=== PATIENT | female | born 1970 | race Caucasian/White ===

== ENCOUNTER 2020-01-08 13:00 | Observation (INO) ==
[2020-01-08 14:10] LABS: Basophils # (auto) 0.06 K/uL (0-0.2); Basophils % (auto) 0.8 %; Eosinophils # (auto) 0.19 K/uL (0-0.5); Eosinophils % (auto) 2.5 %; Hematocrit (blood only) 42.3 % (37-47); Hemoglobin 13.2 g/dL (12.0-16.0); Immature Granulocytes # (auto) 0.01 K/uL (0.00-0.02); Immature Granulocytes % (auto) 0.1 %; Lymphocytes # (auto) 2.53 K/uL (1.2-3.4); Lymphocytes % (auto) 33.4 %; Mean Corpuscular Hemoglobin 27.2 pg (25-34); Mean Corpuscular Hgb Conc 31.2 g/dL (32-36); Mean Platelet Volume 10.5 fL (7.4-10.4); Monocytes # (auto) 0.81 K/uL (0.11-0.59); Monocytes % (auto) 10.7 %; Neutrophils # (auto) 3.97 K/uL (1.4-6.5); Neutrophils % (auto) 52.5 %; Platelet Count 356 K/uL (130-400); RDW Coefficient of Variation 15.1 % (11.5-14.5); RDW Standard Deviation 48.1 fL (36.4-46.3); Red Blood Count 4.86 M/uL (4.2-5.4); White Blood Count 7.57 K/uL (4.8-10.8)
--- NOTE | 2020-01-08 14:19 | Emergency Department Note ---
Impression & Plan AMS (altered mental status) ED Provider Note INFORMANT: Patient ED PROVIDER(S): Heriberto Jimenez MD CHIEF COMPLAINT: Altered mental status PLAN: Disposition: Admitted Condition: Good MEDICAL DECISION MAKING: Patient was brought him in department due to a change in mental status. 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 The patient thought this might be related to a change in her medications. She is on multiple different medications that could affect her however most of these have been chronic. A work-up was performed. The patient had an abnormal ECG but was not having any chest pain. The patient underwent CT imaging of her head. This was negative for acute process. Her CBC was unremarkable. No leukocytosis. The patient had significant hypokalemia noted on her chemistry panel. This was repleted. The patient was hydrated. Remainder of her chemistries were unremarkable. Troponin negative. Tylenol, salicylate, and ethanol levels negative. Urinalysis pending. Given the reports of the family about the abrupt change the patient needs further evaluation and management in the hospital. [facility]. The patient was evaluated in the ER and admitted for further management. Triage Nursing notes reviewed and agree them. Additional history obtained from patient's Vital Signs: reviewed and remarkable for no significant abnormalities Differential diagnosis: Infection, hypoglycemia, electrolyte abnormalities, overdose, toxicologic, cardiac sources, intracerebral event, neurologic, trauma, as well as other pathologies. Diagnostics interpreted by me: ECG: Twelve-lead ECG reveals a sinus rhythm with a short MD at 79 bpm. There is a prolonged QT present. RSR prime pattern present. Anterior T wave inversions are present. No ST elevation. No PVCs. Cardiac Monitoring: Cardiac monitoring ordered by me: The patient was placed on continuous cardiac monitoring and observed. It revealed a sinus rhythm at 77 beats per minute without ectopy or evidence of dysrhythmia. Imaging studies: Head CT: A noncontrast CT scan of the head was performed and was negative for tumor, fracture, intracranial hemorrhage, or other acute pathology. [facility] HPI: The patient is a 49 year old female who presents to the Emergency Room with complaints of AMS. This started 3 days ago and is confirmed by her mother. Mother also notes she was dropping things over the last few weeks. She also has had tremors. The patient also notes the following associated symptoms, insomnia, LOC, headache. The patient has found relieving factors. Current pain is rated as 7/10. Pt denies fevers, chills, diaphoresis, visual changes, neck pain, chest pain, breathing difficulties, nausea, vomiting, abdominal pain, back pain, melena, hematochezia, urinary symptoms, numbness, lymphadenopathy, r vonda, or other complaints. ROS: See above HPI for pertinent positives & negatives. A total of 10 systems reviewed and were otherwise negative. PAST MEDICAL HISTORY:See Below, chronic back pain PAST SURGICAL HISTORY:See Below, FAMILY HISTORY:See Below SOCIAL HISTORY:See Below, Lives with family HOME MEDICATIONS:See Below ALLERGIES:See Below VITALS:See Below PHYSICAL EXAMINATION: GENERAL: Awake, alert, anxious-appearing, in no distress HENT: Normocephalic, atraumatic. Oropharynx unremarkable. EYES: Normal conjunctiva. Sclera non-icteric. NECK: Inspection normal. Non-tender. Supple. No nuchal rigidity. FROM. No masses. RESPIRATORY: Clear to auscultation. No wheezes. No rales. Normal respiratory effort. CARDIAC: Normal rate. Normal rhythm. No murmurs. No rubs. Extremities warm and well perfused. Pulses equal. No JVD. GI: Soft, non-distended. No tenderness to palpation. No rebound or guarding. No masses. RECTAL: Deferred. MUSCULOSKELETAL: Atraumatic. Chest examination reveals no tenderness. The back is symmetrical on inspection without obvious abnormality. There is no CVA tenderness to palpation. No joint edema. LOWER EXTREMITIES: Calves are equal size bilaterally and non-tender. No edema. No discoloration. NEURO: Normal sensorium. No sensory or motor deficits noted. SKIN: No rash or jaundice noted. Heriberto Jimenez MD Past Med/Surg History Social History Smoking Status: Former smoker Tobacco Type: E-cigarettes / Vaping Second Hand Exposure: No; Do You Dip or Chew Tobacco: No; Tobacco Cessation Education Requested by Patient: No Hx Alcohol Use: No Hx Substance Use: No Preferred Language: Yoruba Communication Ability: Effective Tire Technician Required: No Beliefs That Will Affect Care: None Current Living Situation: Family Other Information That Helps Us Care for You: No Feels Safe at Home: Yes Safety Concerns: Feels Safe At This Time Assistive Devices: Cane and Glasses Allergies Allergies Allergy/AdvReac Type Severity Reaction Status Date / Time dexamethasone Allergy Severe HIVES Unverified 01/08/20 14:39 dicyclomine Allergy Severe HIVES Unverified 01/08/20 14:39 Penicillins Allergy Severe HIVES Unverified 01/08/20 14:39 Sulfa (Sulfonamide Allergy Severe HIVES Unverified 01/08/20 14:39 Antibiotics) Latex2 -Systemic Allergic Allergy Severe ANAPHYLAXIS Uncoded 01/08/20 14:39 Response Home Meds Home Medications Medication Instructions Recorded Confirmed hydrocodone-acetaminophen 1 tab PO Q6H PRN #0 tab 09/27/13 01/08/20 baclofen 20 mg PO Q6H 01/08/20 01/08/20 buspirone 5 mg PO TID 01/08/20 01/08/20 duloxetine 120 mg PO QAM 01/08/20 01/08/20 furosemide 20 mg PO BID 01/08/20 01/08/20 levothyroxine 112 mcg PO QAM 01/08/20 01/08/20 linaclotide [Linzess] 290 mcg PO QAM PRN 01/08/20 01/08/20 morphine 50 mg PO BID 01/08/20 01/08/20 pregabalin 100 mg PO BID 01/08/20 01/08/20 Results & Data (ED) Vital Signs Vital Signs - 24 hr 01/08/20 13:14 01/08/20 14:01 01/08/20 14:16 Temperature 36.9 C Temperature Source Oral Pulse Rate 88 79 82 Pulse Rate from SpO2 Sensor Respiratory Rate 18 20 30 H Respiratory Effort / Characteristics Non-Labored Spontaneous Respiratory Depth Normal Respiratory Pattern Regular Blood Pressure 120/76 103/90 Blood Pressure Mean 90 95 Blood Pressure Position Sitting Pulse Oximetry 94 Oxygen Delivery Method Room Air Sepsis Recent Fever Within 48 Hours No Sepsis New/Unexplained Change in Mental Status N/A Sepsis Action Taken by Nursing No Action Required 01/08/20 14:30 01/08/20 14:31 01/08/20 14:56 Temperature Temperature Source Pulse Rate 82 77 81 Pulse Rate from SpO2 Sensor 81 77 80 Respiratory Rate 23 25 H 16 Respiratory Effort / Characteristics Respiratory Depth Respiratory Pattern Blood Pressure 134/92 124/81 Blood Pressure Mean 104 89 Blood Pressure Position Pulse Oximetry 94 96 95 Oxygen Delivery Method Sepsis Recent Fever Within 48 Hours Sepsis New/Unexplained Change in Mental Status Sepsis Action Taken by Nursing 01/08/20 15:00 01/08/20 15:30 01/08/20 16:00 Temperature Temperature Source Pulse Rate 76 76 84 Pulse Rate from SpO2 Sensor 76 75 82 Respiratory Rate 14 17 22 Respiratory Effort / Characteristics Respiratory Depth Respiratory Pattern Blood Pressure 124/77 127/72 129/92 Blood Pressure Mean 89 82 115 Blood Pressure Position Pulse Oximetry 90 92 98 Oxygen Delivery Method Sepsis Recent Fever Within 48 Hours Sepsis New/Unexplained Change in Mental Status Sepsis Action Taken by Nursing Laboratory Data Result diagrams: 01/08/20 13:55 01/08/20 13:55 Lab Results 01/08/20 01/08/20 01/08/20 Range/Units 13:55 13:55 13:55 WBC 7.57 (4.8-10.8) K/uL RBC 4.86 (4.2-5.4) M/uL Hgb 13.2 (12.0-16.0) g/dL Hct 42.3 (37-47) % MCV 87.0 (80-100) fL MCH 27.2 (25-34) pg MCHC 31.2 L (32-36) g/dL RDW Std Deviation 48.1 H (36.4-46.3) fL RDW Coeff of Marlee 15.1 H (11.5-14.5) % Plt Count 356 (130-400) K/uL MPV 10.5 H (7.4-10.4) fL Immature Gran % (Auto) 0.1 % Neut % (Auto) 52.5 % Lymph % (Auto) 33.4 % [place] % (Auto) 10.7 % Eos % (Auto) 2.5 % Baso % (Auto) 0.8 % Neut # (Auto) 3.97 (1.4-6.5) K/uL Lymph # (Auto) 2.53 (1.2-3.4) K/uL [place] # (Auto) 0.81 H (0.11-0.59) K/uL Eos # (Auto) 0.19 (0-0.5) K/uL Baso # (Auto) 0.06 (0-0.2) K/uL Immature Gran # (Auto) 0.01 (0.00-0.02) K/uL Sodium 140 (136-145) mmol/L Potassium 2.4 L* (3.5-5.1) mmol/L Chloride 99 (98-107) mmol/L Carbon Dioxide 33 H (21-32) mmol/L Anion Gap 8.0 (3-11) BUN 9 (7-18) mg/dl Creatinine 1.30 H (0.6-1.2) mg/dl Est Cr Clr Drug Dosing 57.8 ml/min Est GFR ( Amer) 55.4 Est GFR (Non-Af Amer) 47.8 BUN/Creatinine Ratio 7.1 L (10-20) Glucose 98 (70-99) mg/dl Calcium 9.9 (8.5-10.1) mg/dl Total Bilirubin 0.7 (0.2-1) mg/dl AST 44 H (15-37) U/L ALT 28 (12-78) U/L Alkaline Phosphatase 112 (45-117) U/L Troponin I (0-0.045) ng/ml Total Protein 7.9 (6.4-8.2) gm/dl Albumin 3.8 (3.4-5.0) gm/dl Globulin 4.1 H (2.5-4.0) gm/dl Albumin/Globulin Ratio 0.9 (0.9-2) TSH 12.300 H (0.300-4.500) uIu/ml Free T4 0.83 (0.8-1.6) ng/dl Salicylates < 1.7 L (2.8-20) mg/dl Acetaminophen < 2 L (10-30) ug/ml Ethyl Alcohol mg/dL (0-3) mg/dl 01/08/20 01/08/20 Range/Units 13:55 16:05 WBC (4.8-10.8) K/uL RBC (4.2-5.4) M/uL Hgb (12.0-16.0) g/dL Hct (37-47) % MCV (80-100) fL MCH (25-34) pg MCHC (32-36) g/dL RDW Std Deviation (36.4-46.3) fL RDW Coeff of Marlee (11.5-14.5) % Plt Count (130-400) K/uL MPV (7.4-10.4) fL Immature Gran % (Auto) % Neut % (Auto) % Lymph % (Auto) % [place] % (Auto) % Eos % (Auto) % Baso % (Auto) % Neut # (Auto) (1.4-6.5) K/uL Lymph # (Auto) (1.2-3.4) K/uL [place] # (Auto) (0.11-0.59) K/uL Eos # (Auto) (0-0.5) K/uL Baso # (Auto) (0-0.2) K/uL Immature Gran # (Auto) (0.00-0.02) K/uL Sodium (136-145) mmol/L Potassium (3.5-5.1) mmol/L Chloride (98-107) mmol/L Carbon Dioxide (21-32) mmol/L Anion Gap (3-11) BUN (7-18) mg/dl Creatinine (0.6-1.2) mg/dl Est Cr Clr Drug Dosing ml/min Est GFR ( Amer) Est GFR (Non-Af Amer) BUN/Creatinine Ratio (10-20) Glucose (70-99) mg/dl Calcium (8.5-10.1) mg/dl Total Bilirubin (0.2-1) mg/dl AST (15-37) U/L ALT (12-78) U/L Alkaline Phosphatase (45-117) U/L Troponin I < 0.015 (0-0.045) ng/ml Total Protein (6.4-8.2) gm/dl Albumin (3.4-5.0) gm/dl Globulin (2.5-4.0) gm/dl Albumin/Globulin Ratio (0.9-2) TSH (0.300-4.500) uIu/ml Free T4 (0.8-1.6) ng/dl Salicylates (2.8-20) mg/dl Acetaminophen (10-30) ug/ml Ethyl Alcohol mg/dL < 3.0 (0-3) mg/dl Administered Medications Potassium Chloride/Sodium Chloride (Normal Saline W/20 Meq Kcl) 20 meq in 1,000 mls @ 100 mls/hr IV .Q10H JAZMÍN Stop: 01/09/20 12:16 Last Admin: 01/08/20 16:28 Dose: 100 mls/hr Documented by: [id number] Discontinued Medications Potassium Chloride (K Bob / Wtr) 10 meq in 100 mls @ 100 mls/hr IV Q1H JAZMÍN Stop: 01/08/20 16:59 Last Infusion: 01/08/20 19:50 Dose: 0 mls/hr Documented by: [id number] Admin: 01/08/20 16:28 Dose: 100 mls/hr Documented by: [id number] Infusion: 01/08/20 16:18 Dose: 100 mls/hr Documented by: [id number] Admin: 01/08/20 15:18 Dose: 100 mls/hr Documented by: [id number] Potassium Chloride (K Bob / Wtr) 10 meq in 100 mls @ 100 mls/hr IV Q1H STA Stop: 01/08/20 17:16 Last Infusion: 01/08/20 19:50 Dose: 0 mls/hr Documented by: [id number] Admin: 01/08/20 18:43 Dose: 100 mls/hr Documented by: [id number] Discharge Plan Visit Data Chief Complaint: Illness Stated Complaint: HALLUCINATING, NOT FEELING WELL ED Provider: Heriberto Jimenez Discharge Problem: AMS (altered mental status) Patient Disposition: Admitted As Inpatient Discharge Instructions Interventions: ED Discharge Assessment Last Done: 01/08/20 17:32
[2020-01-08 14:35] LABS: Albumin Level 3.8 gm/dl (3.4-5.0); BUN Creatinine Ratio 7.1 (10-20); Calcium 9.9 mg/dl (8.5-10.1); Creatinine Clr Calc Pharmacy 57.8 ml/min; Est GFR (African American) 55.4; Est GFR (Non-African American) 47.8; Potassium 2.4 mmol/L (3.5-5.1)
[2020-01-08 14:38] LABS: Albumin Globulin Ratio 0.9 (0.9-2); Bilirubin,Total 0.7 mg/dl (0.2-1); Globulin 4.1 gm/dl (2.5-4.0); Thyroid Stimulating Hormone 12.3 uIu/ml (0.300-4.500); Total Protein 7.9 gm/dl (6.4-8.2)
[2020-01-08 14:51] LABS: Acetaminophen < 2 ug/ml (10-30); Salicylate < 1.7 mg/dl (2.8-20); T4 Free Thyroxine 0.83 ng/dl (0.8-1.6)
--- NOTE | 2020-01-08 15:00 | CT Scan Report ---
CT OF THE HEAD WITHOUT CONTRAST CLINICAL HISTORY: Altered mental status. COMPARISON STUDY: No previous studies for comparison. CT DOSE: 1074.96 mGy.cm TECHNIQUE: Helical axial images of the head were obtained without IV contrast. Automated exposure con trol was utilized for the study. A dose lowering technique was utilized adhering to the principles o f ALARA. FINDINGS: No acute intracranial hemorrhage, midline shift or mass effect is present. The ventricular system is unremarkable. The basilar cisterns are patent. No extra-axial collections are present. Ther e are no findings to suggest acute dural sinus thrombosis or acute territorial infarct. No significan t calvarial abnormalities are present. Visualized portions of the sinuses and mastoid air cells are c lear. IMPRESSION: No acute intracranial findings. ACT 112: Negative or not required by law. Electronically signed by: Lyndon Zambrano M.D. 01/08/2020 2:58 PM
[2020-01-08] MEDS: POTASSIUM CHLORIDE / WTR 10 MEQ/100 ML PLCT IV SCH ×5 (15:18→23:31)
[2020-01-08] MEDS ORDERED: POTASSIUM CHLORIDE / WTR 10 MEQ/100 ML PLCT IV STA (16:17)
--- NOTE | 2020-01-08 16:19 | History & Physical Report ---
Date of Service January 08, 2020 Assessment & Plan (1) Acute encephalopathy: Suspect secondary to baclofen withdrawal, but differential includes illicit drug use (which she denies, UDS pending), drug toxicity from Flexeril or Rozerem (although seems less likely given only had 2 doses of each, 2-3 weeks ago). Baclofen withdrawal can cause AMS, exaggerated rebound spasticity, hallucinations, high fever, muscle rigidity, seizures, rhabdomyolysis, multi- organ system failure, and as per UpToDate. Fortunately, while she is exhibiting tremors and fasciculations, hallucinations, delirium, she has not developed seizures or multi-system organ failure. CPK not checked on admission. COuld be Lyme disease I suppose vs other generally more insidious causes such as Vitamin B1 or B12 deficiency, hypothyroidism, neurosyphilis. It seems most likely baclofen withdrawal is the culprit, especially as mother reports some improvement since restarting po baclofen [address] head negative, no signs of infection such as leukocytosis, fever or symptoms of infection. No signs or symptoms of meningitis or encephalitis. Her mentation is actually pretty good for me on admission which apparently is an improvement from previous -Admit to PCU for cardiac monitoring given prolonged QT -continue usual home baclofen dose at 20mg po qid -IV ativan prn agitation or anxiety -replace lytes as below -check CK, Lyme titer, RPR, B1, and B12 levels with next lab draw -hydrate with IVFs -watch for fevers or seizures -consult Neuro for further opinion on if needs further imaging or studies -f/u on urine tox screen and UA when available -continue other usual home meds to avoid overlapping opioid withdrawal (2) Hypokalemia: K+ severely low at 2.4 on admission COuld be from lasix use at home and tremors,fasciculations, muscle rigidity -replace with total of KCL 60meq IV over the next 6 hours -start NS + KCl 20meq at 100 mL/hr -follow repeat BMP and Magnesium this evening once riders are completed -HOLD lasix (3) Abnormal ECG: TWIs and prolonged QT could be from hypokalemia replace lytes and repeat ECG in AM monitor on tele for arrhythmias troponin negative, no chest pain (4) Chronic lumbar radiculopathy: failed back syndrome, s/p lumbar fusion sees Pain Man for injections PCP manages medications -continue home Morphine ER 50mg po bid, hydrocodone 7.5/300mg 1 tab po q6h prn, Lyrica 100mg bid, CYmbalta 120mg daily, and baclofen 20 mg po qid as above (5) Neuropathy: stable continue home meds (6) Chronic lower back pain: as above, continue home meds (7) Opioid dependence: continue home Morphine, hydrocodone (8) Current smoker: encouraged smoking/vaping cessation she is adamant about getting nicotine replacement patch while here (9) Hypothyroidism: TSH elevated at 12 but FT4 normal She can't remember if she has been taking her levothyroxine or not at home. Interestingly, her mom brought in all of her bottles of meds from home and levothyroxine was not one of the bottles. Perhaps she has forgotten to take it lately in her delirium -continue usual home dose of 112 mcg repeat TFTs in 4 weeks COuld also be contributing to her delirium (10) Obesity: BMI 32, needs weight loss (11) Constipation due to opioid therapy: reports she only moves bowels once per week and takes an OTC laxative -add on daily Miralax and senna/docusate 1 tab po bid She reports Linzess only gives her gas but doesn't help so doesn't take it -consider Movantik as outpt, can use Relistor here if really needed (12) Symptomatic postsurgical menopause: continue low dose clonidine 0.05mg po tid for vasomotor symptoms (13) Peripheral edema: no edema today holding lasix for hypokalemia (14) Depression with anxiety: stable except anxiety worse lately with symptoms as above -continue home Cymbalta 120mg daily, Buspar Ativan ordered prn (15) DVT prophylaxis: Lovenox SQ SCDs Dispo-admit to PCU, expect at least 2 midnight stay History of Present Illness Chief Complaint: Altered mental status,multiple falls Primary Care Provider: Jonathan Graham This pt is a 49 yo female with a h/o failed back syndrome and lumbar radiculopathy on chronic opioids, depression/anxiety, hypothyroidism, symptomatic menopause on clonidine, endometriosis now s/p FREDO-BSO, opioid- induced constipation, peripheral edema, and current smoker who p/w altered mental status as per her mother. The pt is actually able to provide most of the history with great detail, supplemented at times by her mother. Pt reports she saw her PCP on 12/14 and had c/o insomnia and also wanted to come off of baclofen. Her PCP put her on a 5 day taper off of Baclofen and started her on Rozerem for sleep. After 2 days of taking Rozerem, she said she started feeling "weird" and stopped taking the Rozerem. After the 5 day taper of Baclofen, she started on Flexeril 10mg po tid x 2 days for muscle spasm. She reports this also made her feel "weird" so she stopped it. Since that time, her mother reports she has been very lethargic, sleeping all day long and then waking up at midnight and watching TV. Then, for the last 5 days or so, started having visual and auditory contreras ucinations, getting paranoid, and was forgetting to do simple tasks. Mother reports the pt had tremors and could not hold even a cup in her hand or feed herself. Mother also reports pt having frequent twitching of her body but was awake/conscious. She will get up to walk across the room and then seems to forget how to walk or stand up straight. She has had 6 falls in the last 3 days, but fortunately has not sustained any injuries. Pt denies any pain over her usual lower back and leg pain. SHe has a chronic sensory deficit in her RLE and chronic radicular pain in LLE along with neuropathic pain. Mom reports she c/o headaches for a few days but now those are resolved. Mom reports pt is "usually a [id number] person" and that all of these behaviors are very out of the ordinary. Mom called the PCP 2 days ago and asked if perhaps these symptoms were from Baclofen withdrawal and was advised to have her restart the baclofen at that time (she had been off of it since 12/19). Since restarting baclofen, mom has noticed some improvement but was still concerned and brought her to the ER. No fevers or cough, no diarrhea or abd pain, no urinary problems. Denies chest pain or SOB. Pt denies any illicit drug use. In the ER, she was found to have severely low potassium, abnormal ECG with sinus rhythm ,short NH, prolonged QT present, RSR prime pattern present, and anterior T wave inversions are present. She also had an elevated TSH at 12, with normal FT4 and was told by her PCP office that her thyroid function was normal on routine blood work done 2-3 weeks ago. CBC was fairly unremarkable, AST was minimally elevated, and construction foreman mildly elevated at 1.3. APAP, salicylate level, and EtOH levels all negative. Urine tox and UA had not yet been collected at time of admission. CT head was negative for acute disease. She will be admitted for acute encephalopathy, possibly related to baclofen withdrawal in setting of polypharmacy, as well as severe hypokalemia with resultant ECG changes. Allergies Allergy/AdvReac Type Severity Reaction Status Date / Time dexamethasone Allergy Severe HIVES Unverified 01/08/20 14:39 dicyclomine Allergy Severe HIVES Unverified 01/08/20 14:39 Penicillins Allergy Severe HIVES Unverified 01/08/20 14:39 Sulfa (Sulfonamide Allergy Severe HIVES Unverified 01/08/20 14:39 Antibiotics) Latex2 -Systemic Allergic Allergy Severe ANAPHYLAXIS Uncoded 01/08/20 14:39 Response Home Medications Home Medications Medication Instructions Recorded Confirmed Type hydrocodone-acetaminophen 1 tab PO Q6H PRN #0 tab 09/27/13 01/08/20 History baclofen 20 mg PO Q6H 01/08/20 01/08/20 History buspirone 5 mg PO TID 01/08/20 01/08/20 History clonidine HCl 0.05 mg PO TID 01/08/20 01/08/20 History duloxetine 120 mg PO QAM 01/08/20 01/08/20 History furosemide 20 mg PO BID 01/08/20 01/08/20 History levothyroxine 112 mcg PO QAM 01/08/20 01/08/20 History linaclotide [Linzess] 290 mcg PO QAM PRN 01/08/20 01/08/20 History morphine 50 mg PO BID 01/08/20 01/08/20 History pregabalin 100 mg PO BID 01/08/20 01/08/20 History Past Med/Surg History Medical History Chronic lower back pain Chronic lumbar radiculopathy Constipation due to opioid therapy Current smoker Depression with anxiety History of endometriosis Hypothyroidism Neuropathy Obesity Opioid dependence Peripheral edema Symptomatic postsurgical menopause Surgical History History of appendectomy History of section History of hysterectomy with bilateral oophorectomy History of laparoscopy History of lumbar fusion History of tonsillectomy and adenoidectomy Family History Mother Hyperlipidemia Father Myocardial infarction Hypertension Hypothyroidism Social History Smoking Status: Current every day smoker Tobacco Type: E-cigarettes / Vaping Second Hand Exposure: No; Do You Dip or Chew Tobacco: No; Tobacco Cessation Education Requested by Patient: No Hx Alcohol Use: No Hx Substance Use: No Preferred Language: Japanese Communication Ability: Effective Phlebotomy Instructor Required: No Beliefs That Will Affect Care: None Current Living Situation: Family current occupational status: disabled Other Information That Helps Us Care for You: No Feels Safe at Home: Yes Safety Concerns: Feels Safe At This Time Assistive Devices: Cane and Denture - Lower Review of Systems Review of Systems: All systems reviewed & are unremarkable except as noted in HPI & below Physical Exam Constitutional: WD/WN, vitals as above + obese and cooperative; no acute distress, not ill appearing and not lethargic restless Eyes: PERRL, conjunctivae normal, anicteric sclerae (pupils 3-4mm and reactive) no nystagmus ENMT: external ear and nose normal, oropharynx normal Ears: no hearing impairment Mouth: + dentition abnormality (edentulous) Neck: trachea midline, no thyromegaly neck nontender and no nuchal rigidity Respiratory: normal respiratory effort, lungs clear to auscultation Cardiovascular: RRR, no murmur, no edema Vessels: dorsalis pedis pulses present Chest (Breasts): Chest: normal inspection of chest Gastrointestinal (Abdomen): normal bowel sounds, soft, nontender, no hepatosplenomegaly Musculoskeletal: Extremities: extremities normal to inspection; no cyanosis and no clubbing Skin: no rashes, warm and dry + lesion (a few scabs on dorsal toes) Neurologic: PERRL, EOMI, accommodation nl, no face palsy, no dysarthria CN's II-XI intact bilaterally, moves all extremities, + focal motor deficit (4/5 weakness in LEs bilat, chronic), awake and + confused (occasionally forgetful b ut had recognition of this); + abnormal deep tendon reflexes (1+ throughout) Speech / Cognition: normal speech, no expressive aphasia, no receptive aphasia and normal cognition Motor/Sensory: + tremor, + abnormal movement (w/ constant restlessness of legs, arms, and occasional choreiform movements) and + sensory deficit (to lt touch in RLE,chronic) Psychiatric: A+Ox3, euthymic affect Lymphatic: no lymphedema Results & Data Results & Data ([facility]) Vital Signs (Past 12 Hours) Vital Signs Temp Pulse Resp BP Pulse Ox 01/08/20 15:30 76 17 127/72 92 01/08/20 15:00 76 14 124/77 90 01/08/20 14:56 81 16 124/81 95 01/08/20 14:31 77 25 H 134/92 96 01/08/20 14:30 82 23 94 01/08/20 14:16 82 30 H 01/08/20 14:01 79 20 103/90 01/08/20 13:14 36.9 C 88 18 120/76 94 Laboratory Results 01/08/20 01/08/20 01/08/20 Range/Units 16:05 13:55 13:55 WBC (4.8-10.8) K/uL RBC (4.2-5.4) M/uL Hgb (12.0-16.0) g/dL Hct (37-47) % MCV (80-100) fL MCH (25-34) pg MCHC (32-36) g/dL RDW Std Deviation (36.4-46.3) fL RDW Coeff of Marlee (11.5-14.5) % Plt Count (130-400) K/uL MPV (7.4-10.4) fL Immature Gran % (Auto) % Neut % (Auto) % Lymph % (Auto) % [place] % (Auto) % Eos % (Auto) % Baso % (Auto) % Neut # (Auto) (1.4-6.5) K/uL Lymph # (Auto) (1.2-3.4) K/uL Kingman # (Auto) (0.11-0.59) K/uL Eos # (Auto) (0-0.5) K/uL Baso # (Auto) (0-0.2) K/uL Immature Gran # (Auto) (0.00-0.02) K/uL Sodium (136-145) mmol/L Potassium (3.5-5.1) mmol/L Chloride (98-107) mmol/L Carbon Dioxide (21-32) mmol/L Anion Gap (3-11) BUN (7-18) mg/dl Creatinine (0.6-1.2) mg/dl Est Cr Clr Drug Dosing ml/min Est GFR ( Amer) Est GFR (Non-Af Amer) BUN/Creatinine Ratio (10-20) Glucose (70-99) mg/dl Calcium (8.5-10.1) mg/dl Total Bilirubin (0.2-1) mg/dl AST (15-37) U/L ALT (12-78) U/L Alkaline Phosphatase (45-117) U/L Troponin I < 0.015 (0-0.045) ng/ml Total Protein (6.4-8.2) gm/dl Albumin (3.4-5.0) gm/dl Globulin (2.5-4.0) gm/dl Albumin/Globulin Ratio (0.9-2) TSH (0.300-4.500) uIu/ml Free T4 (0.8-1.6) ng/dl Salicylates < 1.7 L (2.8-20) mg/dl Acetaminophen < 2 L (10-30) ug/ml Ethyl Alcohol mg/dL < 3.0 (0-3) mg/dl 01/08/20 01/08/20 Range/Units 13:55 13:55 WBC 7.57 (4.8-10.8) K/uL RBC 4.86 (4.2-5.4) M/uL Hgb 13.2 (12.0-16.0) g/dL Hct 42.3 (37-47) % MCV 87.0 (80-100) fL MCH 27.2 (25-34) pg MCHC 31.2 L (32-36) g/dL RDW Std Deviation 48.1 H (36.4-46.3) fL RDW Coeff of Marlee 15.1 H (11.5-14.5) % Plt Count 356 (130-400) K/uL MPV 10.5 H (7.4-10.4) fL Immature Gran % (Auto) 0.1 % Neut % (Auto) 52.5 % Lymph % (Auto) 33.4 % Kingman % (Auto) 10.7 % Eos % (Auto) 2.5 % Baso % (Auto) 0.8 % Neut # (Auto) 3.97 (1.4-6.5) K/uL Lymph # (Auto) 2.53 (1.2-3.4) K/uL Kingman # (Auto) 0.81 H (0.11-0.59) K/uL Eos # (Auto) 0.19 (0-0.5) K/uL Baso # (Auto) 0.06 (0-0.2) K/uL Immature Gran # (Auto) 0.01 (0.00-0.02) K/uL Sodium 140 (136-145) mmol/L Potassium 2.4 L* (3.5-5.1) mmol/L Chloride 99 (98-107) mmol/L Carbon Dioxide 33 H (21-32) mmol/L Anion Gap 8.0 (3-11) BUN 9 (7-18) mg/dl Creatinine 1.30 H (0.6-1.2) mg/dl Est Cr Clr Drug Dosing 57.8 ml/min Est GFR ( Amer) 55.4 Est GFR (Non-Af Amer) 47.8 BUN/Creatinine Ratio 7.1 L (10-20) Glucose 98 (70-99) mg/dl Calcium 9.9 (8.5-10.1) mg/dl Total Bilirubin 0.7 (0.2-1) mg/dl AST 44 H (15-37) U/L ALT 28 (12-78) U/L Alkaline Phosphatase 112 (45-117) U/L Troponin I (0-0.045) ng/ml Total Protein 7.9 (6.4-8.2) gm/dl Albumin 3.8 (3.4-5.0) gm/dl Globulin 4.1 H (2.5-4.0) gm/dl Albumin/Globulin Ratio 0.9 (0.9-2) TSH 12.300 H (0.300-4.500) uIu/ml Free T4 0.83 (0.8-1.6) ng/dl Salicylates (2.8-20) mg/dl Acetaminophen (10-30) ug/ml Ethyl Alcohol mg/dL (0-3) mg/dl Diagnostic Findings CT head-negative ECG Additional Comments: as per HPI Code Status & VTE Plan VTE Prophylaxis Plan VTE Prophylaxis will be ordered: Yes PG Care Time/CCT Total # of Minutes Spent Total Time Spent with Patient: Total time spent is greater than 50% in coordination of care (as documented) at patient's floor/unit and/or counseling patient: Coding Level of Care Code 30638 Initial Inpt Care Lvl 3 Diagnoses Acute encephalopathy G93.40 Hypokalemia E87.6 Abnormal ECG R94.31 Chronic lumbar radiculopathy M54.16 Neuropathy G62.9 Chronic lower back pain M54.5; G89.29 Opioid dependence F11.20 Current smoker F17.200 Hypothyroidism E03.9 Obesity E66.9 Constipation due to opioid therapy K59.03; T40.2X5A Symptomatic postsurgical menopause E89.41 Peripheral edema R60.9 Depression with anxiety F41.8 DVT prophylaxis Z29.9
[2020-01-08] MEDS: NSS + 20MEQ KCL 20 MEQ/1,000 ML BAG IV SCH (16:28)
[2020-01-08] MEDS ORDERED: LORazepam 0.5 MG/1 ML VIAL IV PRN (18:07)
[2020-01-08] MEDS ORDERED: ENOXAPARIN INJ 40 MG/0.4 ML SYR SQ SCH (19:00)
[2020-01-08] MEDS ORDERED: NICOTINE 21 MG/24 HR TDSY TD SCH (19:00)
[2020-01-08] MEDS: BACLOFEN 20 MG TAB PO SCH (20:34)
[2020-01-08] MEDS: PREGABALIN 100 MG CAP PO SCH (20:46)
[2020-01-08] MEDS: MORPHINE SULFATE PO SCH (20:46)
[2020-01-08] MEDS: MORPHINE PO SCH (20:47)
[2020-01-09 00:07] LABS: Calcium 9.1 mg/dl (8.5-10.1); Creatinine Clr Calc Pharmacy 81.5 ml/min; Est GFR (African American) 76.1; Est GFR (Non-African American) 65.6; Magnesium 2.2 mg/dl (1.8-2.4); Potassium 2.7 mmol/L (3.5-5.1)
[2020-01-09 00:22] LABS: Lyme Ab IgM w/WB Rflx Negative (Negative)
[2020-01-09 00:23] LABS: Lyme Ab IgG w/WB Rflx Positive (Negative)
[2020-01-09] MEDS: HYDROCODONE/ACETAMINOPHEN 7.5/325MG TAB PO PRN ×3 (00:29→14:58)
[2020-01-09] MEDS: BACLOFEN 20 MG TAB PO SCH ×3 (00:29→14:59)
[2020-01-09 01:45] LABS: Appearance Urine Turbid (Clear); Bilirubin Urine Negative (Negative); Blood Urine Trace (Negative); Color Urine Yellow; Epithelial Cell Urine Auto >30 /lpf (0-5); Glucose Urine UA Negative (Negative); Ketones Urine Negative (Negative); Leukocyte Esterase Urine 3+ (Negative); Nitrite Urine Negative (Negative); Protein Urine Negative (Negative); RBC Urine Automated 0-4 /hpf (0-4); Specific Gravity Urine 1.007 (1.000-1.030); Urobilinogen Urine Negative (Negative); WBC Urine Automated >30 /hpf (0-5)
[2020-01-09 01:56] LABS: Cast Urine Automated 0 /lpf (0-5)
[2020-01-09 01:57] LABS: Bacteria Urine Automated 2+ (Negative)
[2020-01-09 02:10] LABS: Amphetamines+Metham, Urine Neg (Neg); Barbiturates, Urine Neg (Neg); Benzodiazepine, Urine Neg (Neg); Cocaine, Urine Neg (Neg); MDMA (Ecstacy), Urine Neg (Neg); Methadone, Urine Neg (Neg); Opiate, Urine Pos (Neg); Phencyclidine, Urine Neg (Neg)
[2020-01-09] MEDS: NSS + 20MEQ KCL 20 MEQ/1,000 ML BAG IV SCH (02:46)
[2020-01-09] MEDS ORDERED: POTASSIUM CHLORIDE 20 MEQ TABCR PO STA (02:53)
[2020-01-09] MEDS ORDERED: LEVOTHYROXINE SODIUM 112 MCG TABLET PO SCH (06:30)
[2020-01-09 06:32] LABS: BUN Creatinine Ratio 5.4 (10-20); Calcium 9.2 mg/dl (8.5-10.1); Creatinine Clr Calc Pharmacy 80.6 ml/min; Est GFR (African American) 75.2; Est GFR (Non-African American) 64.9; Magnesium 2.3 mg/dl (1.8-2.4); Potassium 2.7 mmol/L (3.5-5.1)
[2020-01-09] MEDS: cloNIDine HCL 0.1 MG TAB PO SCH ×2 (08:16→14:59)
[2020-01-09] MEDS: PREGABALIN 100 MG CAP PO SCH (08:16)
[2020-01-09] MEDS: MORPHINE SULFATE PO SCH (08:19)
[2020-01-09] MEDS: MORPHINE PO SCH (08:19)
[2020-01-09] MEDS ORDERED: POLYETHYLENE (MIRALAX) 17 GM PACK PO SCH (09:00)
[2020-01-09] MEDS ORDERED: DULOXETINE HCL 60 MG CAP PO SCH (09:00)
[2020-01-09] MEDS ORDERED: DOCUSATE SODIUM/SENNA 50/8.6MG TAB PO SCH (09:00)
--- NOTE | 2020-01-09 10:56 | Neurology Consultation ---
Date of Consultation January 09, 2020 Assessment & Plan (1) Acute encephalopathy: (2) Chronic lower back pain: (3) Neuropathy: (4) Chronic lumbar radiculopathy: (5) Depression with anxiety: patient had an acute/subacute severe encephalopathy starting with a rapid taper of baclofen. This resulted in auditory and visual hallucinations, periods of "blacking out", tremor, paranoid ideation, and insomnia. these are typical symptoms of acute baclofen withdrawal. She started out at 80 mg a day which was a maximum dose orally and took her last dose 8 days later. This was likely too rapid of a taper and resulted in the syndrome. Currently she is back to baseline having had several doses of 20 mg baclofen since admission. The patient has other pharmacological issues including opioid dependence and constipation secondary to this. There may be some serotonin syndrome components to her recent history and the combination duloxetine, pregabalin, and buspirone may contribute to this. The patient has a history of polyneuropathy in the feet. This is chronic and stable. The patient has a history of chronic low back pain and right lower extremity radicular symptoms probably in an L5 distribution. This also is stable. She has a longstanding history of anxiety and depression on multiple medications. She has a history of hypothyroidism and her TSH was markedly elevated. Recommendations: 1. continue baclofen 20 mg 3 times a day for now. 2. increase Synthroid (I will leave the dose of to her primary care team). 3. Increase activity as able. 4. I have no reason for additional neurologic testing or treatment changes at this time. Overall, I spent a total of 100 minutes with this case including review of records,, direct evaluation the patient bedside, and discussing the case with the patient at bedside, the RN, and Dr. Felix, including differential diagnosis and treatment options. History of Present Illness Reason for Consultation: the patient is a 49 Year old, who I was asked to see at the request of Dr. Hudson, for neurologic consultation regarding acute/Subacute altered mental status. Requesting Physician: Dr. Hudson Attending Physician: Ag Felix, DO History of Present Illness patient has a history of depression and anxiety for 30 years. She was working as an [employer] when in 2002 she had a lumbar spine injury (not work related) and ended up having a fusion by Dr. Osman in May of 2002. ever since that surgery she has had right lower extremity pain, weakness, and numbness. She has been on chronic opioid therapy with hydrocodone 4 times a day and morphine 50 mg twice a day ever since. She also has been on baclofen 20 mg 4 times a day, Lyrica 100 mg twice a day and duloxetine 120 mg a day. In addition she takes buspirone 5 mg 3 times a day. She has a history of hypothyroidism and neuropathy. She is constipated from the opioids. The patient did not believe the baclofen was helping her leg and requested going off the medication. On December 21 she started lowering baclofen and on the she took her last dose. She started having auditory and visual hallucinations, blackout periods and some paranoid ideation. She had tremor in both hands and head worse insomnia. Rozerem was initiated but she only took this a couple of days, because she felt worse on it. in addition when she stopped the baclofen she initiated cyclobenzaprine 10 mg 3 times a day. this gave her significant side effects as well and she stopped this after 2 days. Although she herself felt that she was "better" on January 07 she was brought to the emergency room at the insistence of her mother. She ride to the emergency room on January 07 at 1314, with a temperature 36.9, pulse 88 regular, respiratory rate 18, blood pressure 120/76, and O2 saturation 94%. CBC was unremarkable. Chem profile showed a potassium of 2.4, creatinine 1.3, AST of 44, and a tox screen was remarkable only for opiates. TSH was 12.3 and free T4 was 0.83 CK was 392 and today is 369. Potassium and creatinine are normal today. B12 was 371. Lyme antibody titer was positive for IgG and negative for IgM and Western blot is pending. The patient received a total of 320 mg doses of baclofen since admission and she feels this morning that she is back to her baseline mental status. Nursing reports no issues overnight. Allergies Allergy/AdvReac Type Severity Reaction Status Date / Time dexamethasone Allergy Severe HIVES Unverified 01/08/20 14:39 dicyclomine Allergy Severe HIVES Unverified 01/08/20 14:39 Penicillins Allergy Severe HIVES Unverified 01/08/20 14:39 Sulfa (Sulfonamide Allergy Severe HIVES Unverified 01/08/20 14:39 Antibiotics) Latex2 -Systemic Allergic Allergy Severe ANAPHYLAXIS Uncoded 01/08/20 14:39 Response Home Medications Home Medications Medication Instructions Recorded Confirmed Type hydrocodone-acetaminophen 1 tab PO Q6H PRN #0 tab 09/27/13 01/08/20 History baclofen 20 mg PO Q6H 01/08/20 01/08/20 History buspirone 5 mg PO TID 01/08/20 01/08/20 History clonidine HCl 0.05 mg PO TID 01/08/20 01/08/20 History duloxetine 120 mg PO QAM 01/08/20 01/08/20 History furosemide 20 mg PO BID 01/08/20 01/08/20 History levothyroxine 112 mcg PO QAM 01/08/20 01/08/20 History linaclotide [Linzess] 290 mcg PO QAM PRN 01/08/20 01/08/20 History morphine 50 mg PO BID 01/08/20 01/08/20 History pregabalin 100 mg PO BID 01/08/20 01/08/20 History Patient History Medical History Chronic lower back pain Chronic lumbar radiculopathy Constipation due to opioid therapy Current smoker Depression with anxiety History of endometriosis Hypothyroidism Neuropathy Obesity Opioid dependence Peripheral edema Symptomatic postsurgical menopause Surgical History History of appendectomy History of section History of hysterectomy with bilateral oophorectomy History of laparoscopy History of lumbar fusion History of tonsillectomy and adenoidectomy Family History Mother Hyperlipidemia Father Myocardial infarction Hypertension Hypothyroidism Social History Smoking Status: Current every day smoker Tobacco Type: E-cigarettes / Vaping Second Hand Exposure: No; Do You Dip or Chew Tobacco: No; Tobacco Cessation Education Requested by Patient: No Hx Alcohol Use: No Hx Substance Use: No Preferred Language: Vietnamese Communication Ability: Effective Mrp Controller Required: No Beliefs That Will Affect Care: None Current Living Situation: Family current occupational status: disabled Other Information That Helps Us Care for You: No Feels Safe at Home: Yes Safety Concerns: Feels Safe At This Time Assistive Devices: Cane Review of Systems Constitutional: + fatigue and + weakness; no fever Eyes: no diplopia, no eye pain and no worsening vision Ear, Nose, Mouth, Throat: no ear pain, no tinnitus, no hearing loss, no dizziness, no hoarseness and no dysphagia Respiratory: no cough and no dyspnea Cardiovascular: no chest pain, no palpitations and no lightheadedness Gastrointestinal: no abdominal pain, no nausea and no vomiting Genitourinary: no dysuria, no urinary frequency and no urinary incontinence Musculoskeletal: + back pain and + radicular pain; no neck pain, no joint pain and no myalgia Integumentary: no rash and no lesions Neurologic: + gait abnormality, + localized weakness and + numbness; no generalized weakness, no tingling, no tremor(s), no abnormal movements, no headache(s), no abnormal speech, no confusion and no memory loss Psychiatric: + depression and + anxiety; no irritability, no difficulty concentrating, no confusion and no hallucinations Endocrine: + fatigue; no flushing Hematologic / Lymphatic: no easy bleeding and no easy bruising Allergy / Immunological: no urticaria and no problem reported Exam (Neuro) Physical Exam: The patient is right-handed. The patient is awake, alert, and attentive. Speech is normal without any aphasia or dysarthria. She can name objects, repeat phrases, and has normal spontaneous speech. Mentation and thought processes are intact, with orientation to person, place and time, and normal fund of knowledge. Attention and concentration are normal. Mood and affect are normal and appropriate. General appearance and grooming are normal. Short and long-term memory are intact. The discs are sharp with positive venous pulsations bilaterally. There are no exudates, hemorrhages, or blood vessel changes seen. Pupils are 3 mm bilaterally and reactive to light. Extraocular eye muscles are intact without nystagmus. Visual acuity and visual ramon seem normal grossly to confrontation. There are no deficits to sensation in the face in all 3 distributions of the fifth cranial nerve bilaterally. Corneal reflexes are positive bilaterally. Facial strength and symmetry was normal bilaterally. Hearing seems normal to whisper and finger rub bilaterally. Palate moves well without asymmetry. There is normal sternocleidomastoid and trapezius (shoulder shrug) strength bilaterally. Tongue is midline with good strength bilaterally. Neck has a full range of motion without discomfort. There are no cervical bruits bilaterally. There are no cranial or ocular bruits. Heart is without murmur. There is a regular rhythm and rate. Cervical, thoracic, and lumbar spine are nontender to palpation. Gait is narrow based, with good arm swing, turns, and stance. Balance is normal eyes open or closed. The patient can tandem walk without difficulty. The patient can heal and toe walk normally. With outstretched arms there is no drift. There are no resting, postural, or action tremors. There is no ataxia with finger to nose testing. There is good facility in the hands. No other abnormal involuntary movements are noted. Motor strength is 5/5 diffusely in the arms bilaterally including deltoids, biceps, triceps, brachioradialis, wrist flexors and extensors, physician allergist immunologist, and intrinsic hand muscles. Motor strength is 5/5 diffusely in the legs bilaterally including hip flexors, quadriceps, hamstrings, gastrocnemius, tibialis anterior, tibialis posterior, and Peroneii muscles. Toe extensors are normal and there is good bulk in the extensor digitorum brevis muscles bilaterally. After additional and more careful strength testing I did not believe that the right lower extremity had any actual weakness in individual muscle groups. The limbs have good tone without rigidity or spasticity. There is no atrophy noted in the muscles. Muscle bulk is normal, there is no tenderness to palpation, no myotonia to percussion, and no fasciculations seen. Sensory examination Revealed a stocking decrease pinprick sense loss in the left foot. On the right there seemed to be some decreased sensation in L5 distribution. Reflexes are 1/4 in the biceps, triceps, and brachioradialis tendons bilaterally. Quadriceps reflexes were 3/4/4 bilaterally and Achilles reflexes were absent bilaterally. There is no clonus bilaterally. Toes are downgoing with plantar stimulation bilaterally. Peripheral pulses are present and of normal quality distally in all 4 limbs. There is no peripheral edema noted in the limbs. Results & Data ([facility]) Vital Signs (Past 12 Hours) Vital Signs Temp Pulse Pulse Resp BP Pulse Ox 01/09/20 07:56 66 01/09/20 07:28 36.4 C L 65 19 125/78 98 01/09/20 04:15 36.6 C 74 18 124/75 98 01/08/20 23:37 36.6 C 61 18 93/62 L 97 PG Care Time/CCT Total # of Minutes Spent Total Time Spent with Patient: Total time spent is greater than 50% in coordination of care (as documented) at patient's floor/unit and/or counseling patient: Coding Level of Care Code 08890 Initial Inpt Care Lvl 3 Diagnoses Acute encephalopathy G93.40 Chronic lower back pain M54.5; G89.29 Neuropathy G62.9 Chronic lumbar radiculopathy M54.16 Depression with anxiety F41.8 Time Spent (min) 100 Comment Add [id number] to [id number]
[2020-01-09 13:57] LABS: BUN Creatinine Ratio 5.5 (10-20); Calcium 8.9 mg/dl (8.5-10.1); Creatinine Clr Calc Pharmacy 76.2 ml/min; Est GFR (African American) 69.3; Est GFR (Non-African American) 59.8; Potassium 3.3 mmol/L (3.5-5.1)
--- NOTE | 2020-01-09 14:25 | Discharge Summary ---
Date of Service January 09, 2020 Admission HPI Per Admitting Provider This pt is a 49 yo female with a h/o failed back syndrome and lumbar radiculopathy on chronic opioids, depression/anxiety, hypothyroidism, symptomatic menopause on clonidine, endometriosis now s/p FREDO-BSO, opioid-in duced constipation, peripheral edema, and current smoker who p/w altered mental status as per her mother. The pt is actually able to provide most of the history with great detail, supplemented at times by her mother. Pt reports she saw her PCP on 12/14 and had c/o insomnia and also wanted to come off of baclofen. Her PCP put her on a 5 day taper off of Baclofen and started her on Rozerem for sleep. After 2 days of taking Rozerem, she said she started feeling "weird" and stopped taking the Rozerem. After the 5 day taper of Baclofen, she started on Flexeril 10mg po tid x 2 days for muscle spasm. She reports this also made her feel "weird" so she stopped it. Since that time, her mother reports she has been very lethargic, sleeping all day long and then waking up at midnight and watching TV. Then, for the last 5 days or so, started having visual and auditory hallucinations, getting paranoid, and was forgetting to do simple tasks. Mother reports the pt had tremors and could not hold even a cup in her hand or feed herself. Mother also reports pt having frequent twitching of her body but was awake/conscious. She will get up to walk across the room and then seems to forget how to walk or stand up straight. She has had 6 falls in the last 3 days, but fortunately has not sustained any injuries. Pt denies any pain over her usual lower back and leg pain. SHe has a chronic sensory deficit in her RLE and chronic radicular pain in LLE along with neuropathic pain. Mom reports she c/o headaches for a few days but now those are resolved. Mom reports pt is "usually a [id number] person" and that all of these behaviors are very out of the ordinary. Mom called the PCP 2 days ago and asked if perhaps these symptoms were from Baclofen withdrawal and was advised to have her restart the baclofen at that time (she had been off of it since 12/19). Since restarting baclofen, mom has noticed some improvement but was still concerned and brought her to the ER. No fevers or cough, no diarrhea or abd pain, no urinary problems. Denies chest pain or SOB. Pt denies any illicit drug use. In the ER, she was found to have severely low potassium, abnormal ECG with sinus rhythm ,short AK, prolonged QT present, RSR prime pattern present, and anterior T wave inversions are present. She also had an elevated TSH at 12, with normal FT4 and was told by her PCP office that her thyroid function was normal on routine blood work done 2-3 weeks ago. CBC was fairly unremarkable, AST was minimally elevated, and shot dropper mildly elevated at 1.3. APAP, salicylate level, and EtOH levels all negative. Urine tox and UA had not yet been collected at time of admission. CT head was negative for acute disease. She will be admitted for acute encephalopathy, possibly related to baclofen withdrawal in setting of polypharmacy, as well as severe hypokalemia with resultant ECG changes. Principal Diagnosis Encephalopathy due to baclofen withdrawal, rapid Discharge Exam Constitutional WD/WN, vitals as above Eyes PERRL, conjunctivae normal, anicteric sclerae ENMT external ear and nose normal, oropharynx normal Neck trachea midline, no thyromegaly Respiratory normal respiratory effort, lungs clear to auscultation Cardiovascular RRR, no murmur, no edema Gastrointestinal (Abdomen) normal bowel sounds, soft, nontender, no hepatosplenomegaly Musculoskeletal no cyanosis or clubbing, extremities motor strength 5/5 Skin no rashes, warm and dry Neurologic patellar DTR's 2+ bilat, sensation intact and PERRL, EOMI, accommodation nl, no face palsy, no dysarthria Psychiatric A+Ox3, euthymic affect Lymphatic no cervical or axillary lymphadenopathy Discharge Data Allergies Allergy/AdvReac Type Severity Reaction Status Date / Time dexamethasone Allergy Severe HIVES Unverified 01/08/20 14:39 dicyclomine Allergy Severe HIVES Unverified 01/08/20 14:39 Penicillins Allergy Severe HIVES Unverified 01/08/20 14:39 Sulfa (Sulfonamide Allergy Severe HIVES Unverified 01/08/20 14:39 Antibiotics) Latex2 -Systemic Allergic Allergy Severe ANAPHYLAXIS Uncoded 01/08/20 14:39 Response Consultations 01/08/20 15:33 ED Decision to Admit Stat 01/08/20 18:07 Consult Neurology Routine Ordered Studies 01/08/20 14:19 CT head/brain wo con Stat Hospital Course (1) Acute encephalopathy: Suspect secondary to baclofen withdrawal, but differential includes illicit drug use (which she denies, UDS pending), drug toxicity from Flexeril or Rozerem (although seems less likely given only had 2 doses of each, 2-3 weeks ago). Baclofen withdrawal can cause AMS, exaggerated rebound spasticity, hallucinations, high fever, muscle rigidity, seizures, rhabdomyolysis, multi- organ system failure, and as per UpToDate. Fortunately, while she is ex hibiting tremors and fasciculations, hallucinations, delirium, she has not developed seizures or multi-system organ failure. CPK not checked on admission. COuld be Lyme disease I suppose vs other generally more insidious causes such as Vitamin B1 or B12 deficiency, hypothyroidism, neurosyphilis. It seems most likely baclofen withdrawal is the culprit, especially as mother reports some improvement since restarting po baclofen [address] head negative, no signs of infection such as leukocytosis, fever or symptoms of infection. No signs or symptoms of meningitis or encephalitis. Her mentation is actually pretty good for me on admission which apparently is an improvement from previous discussed with Dr. Shen, most likely her symptoms are attributed to rapid withdrawal of Baclofen patient back to baseline after resuming the Baclofen she feels great, her pain is well controlled, eating well, mentation is clear, she wants to return home discussed that she could come off the Baclofen but at a slower taper, she refused, said that the Baclofen works for her and she wants to stay on it discharge to home (2) Hypokalemia: K+ severely low at 2.4 on admission COuld be from lasix use at home and tremors,fasciculations, muscle rigidity aggressive replacement both PO and IV, K up to near normal (3) Abnormal ECG: TWIs and prolonged QT could be from hypokalemia resolved, no issues on tele while here (4) Chronic lumbar radiculopathy: failed back syndrome, s/p lumbar fusion sees Pain Man for injections PCP manages medications -continue home Morphine ER 50mg po bid, hydrocodone 7.5/300mg 1 tab po q6h prn, Lyrica 100mg bid, CYmbalta 120mg daily, and baclofen 20 mg po qid as above (5) Neuropathy: stable continue home meds (6) Chronic lower back pain: as above, continue home meds (7) Opioid dependence: continue home Morphine, hydrocodone (8) Current smoker: encouraged smoking/vaping cessation she is adamant about getting nicotine replacement patch while here (9) Hypothyroidism: TSH elevated at 12 but FT4 normal She can't remember if she has been taking her levothyroxine or not at home. Interestingly, her mom brought in all of her bottles of meds from home and levothyroxine was not one of the bottles. Perhaps she has forgotten to take it lately in her delirium -continue usual home dose of 112 mcg recommend repeating TSH in 4 weeks (10) Obesity: BMI 32, needs weight loss (11) Constipation due to opioid therapy: reports she only moves bowels once per week and takes an OTC laxative -add on daily Miralax and senna/docusate 1 tab po bid She reports Linzess only gives her gas but doesn't help so doesn't take it -consider Movantik as outpt, can use Relistor here if really needed (12) Symptomatic postsurgical menopause: continue low dose clonidine 0.05mg po tid for vasomotor symptoms (13) Peripheral edema: no edema today holding lasix for hypokalemia (14) Depression with anxiety: stable except anxiety worse lately with symptoms as above -continue home Cymbalta 120mg daily, Buspar Ativan ordered prn Total Time Total Time Spent Total Time Spent (In Minutes): 32 minutes Total Time Includes: Examination of the Patient, Discharge Planning, Medication Reconciliation and Communication With Other Providers (DR. Shen) Discharge Plan Discharge Items Patient Disposition: Home - Self-Care Reason For Visit: AMS,BACLOFEN WITHDRAWAL Discharge Diagnosis: Altered mental status due to baclofen withdrawal Condition on Discharge: Good Activity: Resume your previous activity Driving/Machine Use: Resume 1 day after discharge Weightbearing: Full weightbearing Non-emergency contact: Primary Care Provider Call non-emergency contact if: you have any medication questions Follow-up/Referrals: Jonathan Graham [Primary Care Provider] - (one week) Diet: Regular Addtl Attending Provider Instructions: Medications: BACLOFEN: continue to take four times a day, likely the acute withdrawal that caused your symptoms LASIX: hold this evening, you can resume tomorrow, as we discussed, make sure you are taking your potassium every day SYNTHROID: make sure you are taking the 112mcg as prescribed Altered mental status, muscle spasticity, due to Baclofen withdrawal recommend that you continue to take the Baclofen if you would come off the Baclofen in the future, would recommend coming off slower, go down by 20mg a week so would taper over 4 weeks Low potassium: aggressive replacement, potassium up to 3.3 today continue to take daily potassium resume Lasix tomorrow likely the potassium dropped so low because of muscle spasticity, poor intake Pending Studies at Discharge: No Stand-Alone Forms: My [facility], Smoking Cessation Medications and DC Order Prescriptions: Continued hydrocodone-acetaminophen 7.5-300 mg Tablet 1 tab PO Q6H PRN (Reason: Pain) Qty: 0 RF: 0 buspirone 5 mg tablet 5 mg PO TID RF: 0 furosemide 20 mg tablet 20 mg PO BID RF: 0 pregabalin 100 mg capsule 100 mg PO BID RF: 0 morphine 50 mg capsule,extend.release pellets 50 mg PO BID RF: 0 baclofen 20 mg tablet 20 mg PO Q6H RF: 0 duloxetine 60 mg capsule,delayed release(DR/EC) 120 mg PO QAM RF: 0 levothyroxine 112 mcg tablet 112 mcg PO QAM RF: 0 Linzess 290 mcg capsule 290 mcg PO QAM PRN (Reason: Constipation) RF: 0 clonidine HCl 0.1 mg tablet 0.05 mg PO TID RF: 0 Discharge Orders: Discharge Order (Routine); Ordered 01/09/20 Ordered By: Ag Felix Admission Data Admit Date/Time: 01/08/20 16:17 Attending Provider: Ag Felix Admit Provider: Keira Hudson Primary Care Provider: Jonathan Graham Other Providers: Keira Hudson ; Margarito Segovia Other Interventions: Discharge Summary Assessment (RN) Last Done: 01/09/20 14:29 Coding Level of Care Code 59822 OBS Care - Discharge Diagnoses Acute encephalopathy G93.40 Hypokalemia E87.6 Abnormal ECG R94.31 Chronic lumbar radiculopathy M54.16 Neuropathy G62.9 Chronic lower back pain M54.5; G89.29 Opioid dependence F11.20 Current smoker F17.200 Hypothyroidism E03.9 Obesity E66.9 Constipation due to opioid therapy K59.03; T40.2X5A Symptomatic postsurgical menopause E89.41 Peripheral edema R60.9 Depression with anxiety F41.8
[2020-01-09 23:14] LABS: Rapid Plasma Reagin Nonreactive (Nonreactive)
--- NOTE | 2020-01-10 05:32 | Electrocardiogram Report ---
Test Reason : Blood Pressure : / mmHG Vent. Rate : 079 BPM Atrial Rate : 079 BPM P-R Int : 096 ms QRS Dur : 102 ms QT Int : 420 ms P-R-T Axes : 052 028 -07 degrees QTc Int : 481 ms Sinus rhythm with short MD RSR' or QR pattern in V1 suggests right ventricular conduction delay Prolonged QT Abnormal ECG No previous ECGs available Confirmed by Juan Manuel Waggoner ([id number]) on 01/10/2020 5:32:08 AM Referred By: REFERRED SELF Confirmed By:Juan Manuel Waggoner
--- NOTE | 2020-01-10 05:58 | Electrocardiogram Report ---
Test Reason : Blood Pressure : / mmHG Vent. Rate : 062 BPM Atrial Rate : 062 BPM P-R Int : 128 ms QRS Dur : 104 ms QT Int : 474 ms P-R-T Axes : 046 019 006 degrees QTc Int : 481 ms Normal sinus rhythm T wave abnormality, consider anterior ischemia Prolonged QT Abnormal ECG When compared with ECG of 08-JAN-2020 13:49, No significant change Confirmed by Juan Manuel Waggoner ([id number]) on 01/10/2020 5:58:24 AM Referred By: REFERRED SELF Confirmed By:Juan Manuel Waggoner
[2020-01-11 12:22] LABS: Codeine Urine NEGATIVE ng/mL (<50); Hydrocodone Urine NEGATIVE ng/mL (<50); Hydromor Urine 274 ng/mL (<50); Morphine Urine >10000 ng/mL (<50); Norhydrocodone Conf Ur NEGATIVE ng/mL (<50); Noroxycodone Urine NEGATIVE ng/mL (<50); Oxycodone Urine NEGATIVE ng/mL (<50); Oxymorph Urine NEGATIVE ng/mL (<50)
[2020-01-12 00:56] LABS: 18KDIGG Band NON-REACTIVE; 23KDIGG Band NON-REACTIVE; 23KDIGM Band NON-REACTIVE; 28KDIGG Band NON-REACTIVE; 30KDIGG Band NON-REACTIVE; 39KDIGG Band NON-REACTIVE; 39KDIGM Band NON-REACTIVE; 41KDIGG Band REACTIVE; 41KDIGM Band NON-REACTIVE; 45KDIGG Band NON-REACTIVE; 58KDIGG Band NON-REACTIVE; 66KDIGG Band NON-REACTIVE; 93KDIGG Band NON-REACTIVE; Lyme Antibodies, WB IgG NEGATIVE (NEGATIVE); Lyme Antibodies, WB IgM NEGATIVE (NEGATIVE)
== END 2020-01-09 15:30 | disposition home or self-care (01) ==
LOC: ED 13:00 → SUATTDRO 16:17 → INTOOBSV 16:17 → 2E 16:17
DX: E66.9 Obesity, unspecified; Z87.891 Personal history of nicotine dependence; G62.9 Polyneuropathy, unspecified; F41.8 Other specified anxiety disorders; Z79.899 Other long term (current) drug therapy; F11.20 Opioid dependence, uncomplicated; R41.82 Altered mental status, unspecified; Z88.8 Allergy status to other drugs, medicaments and biological substances; E87.6 Hypokalemia; M54.16 Radiculopathy, lumbar region; Z91.040 Latex allergy status; Z88.0 Allergy status to penicillin; G89.29 Other chronic pain; R94.31 Abnormal electrocardiogram [ECG] [EKG]; Z88.2 Allergy status to sulfonamides; M54.5 Low back pain; Z68.32 Body mass index [BMI] 32.0-32.9, adult; E03.9 Hypothyroidism, unspecified; K59.03 Drug induced constipation; G93.40 Encephalopathy, unspecified; E89.41 Symptomatic postprocedural ovarian failure